=== PATIENT | female | born 1950 | race Two or more races ===

== ENCOUNTER → 2017-12-09 | Outpatient (CLI) | payer MEDICARE, OTHER | END | disposition home or self-care (01) | LOC: HKI 14:31 | DX: M17.12 Unilateral primary osteoarthritis, left knee (principal); Z90.710 Acquired absence of both cervix and uterus | CPT/HCPCS: Z7500 ==

== ENCOUNTER → 2018-04-06 | Outpatient (CLI) | payer MEDICARE, OTHER | END | disposition home or self-care (01) | LOC: HKI 09:59 | DX: Z01.818 Encounter for other preprocedural examination (principal) | CPT/HCPCS: G0463 ==

== ENCOUNTER 2018-04-08 05:39 | Observation (INO) | payer MEDICARE, OTHER ==
[2018-04-08] MEDS: LACTATED RINGER'S 1,000 ML IV* (06:00)
[2018-04-08] MEDS ORDERED: EPHEDrine SULFATE 50 MG/5 ML SYG (07:00)
[2018-04-08] MEDS ORDERED: BACITRACIN 50000 UNITS INJ (07:00)
[2018-04-08] MEDS ORDERED: POLYMYXIN B 500000 UNIT INJ (07:03)
[2018-04-08] MEDS ORDERED: PROPOFOL 20 ML (07:26)
[2018-04-08] MEDS ORDERED: CEFAZOLIN 1 GM INJ (07:26)
[2018-04-08] MEDS ORDERED: ONDANSETRON 4 MG INJ (07:26)
[2018-04-08] MEDS ORDERED: LIDOCAINE 2% (SDV) 5 ML INJ (07:26)
[2018-04-08] MEDS ORDERED: METOCLOPRAMIDE 10 MG INJ (07:26)
[2018-04-08] MEDS ORDERED: SENNA/DOCUSATE NA (8.6MG/50MG) TAB PO (07:30)
[2018-04-08] MEDS ORDERED: DIPHENHYDRAMINE 50 MG INJ IV ×2 (07:30)
[2018-04-08] MEDS ORDERED: METOCLOPRAMIDE 10 MG INJ IV (07:30)
[2018-04-08] MEDS ORDERED: MIDAZOLAM 1 MG/ML 2 ML INJ IV (07:30)
[2018-04-08] MEDS ORDERED: NA PHOSPHATE/BIPHOS 133 ML ENEMA PR (07:30)
[2018-04-08] MEDS ORDERED: HYDROmorphONE 1 MG/5 ML IV SYRINGE IV ×3 (07:30)
[2018-04-08] MEDS ORDERED: LABETALOL HCL 20MG INJ IV (07:30)
[2018-04-08] MEDS ORDERED: oxyCODONE 5 MG TAB PO ×2 (07:30)
[2018-04-08] MEDS ORDERED: OXYCODONE/ACETAMINOPHEN (5/325) TAB PO ×2 (07:30)
[2018-04-08] MEDS ORDERED: FENTAnyl 50 MCG/ML VIAL IV ×3 (07:30)
[2018-04-08] MEDS ORDERED: BETHANECHOL 25 MG TAB PO (07:30)
[2018-04-08] MEDS ORDERED: MEPERIDINE 25 MG INJ IV (07:30)
[2018-04-08] MEDS ORDERED: MAGNESIUM HYDROXIDE 30ML CUP PO (07:30)
[2018-04-08] MEDS ORDERED: NALOXONE (0.4 MG/ML) INJ IV (07:30)
[2018-04-08] MEDS ORDERED: ONDANSETRON 4 MG INJ IV (07:30)
[2018-04-08] MEDS ORDERED: hydrALAzine 20 MG INJ IV (07:30)
[2018-04-08] MEDS ORDERED: BISACODYL 10 MG SUPP PR (07:30)
[2018-04-08] MEDS ORDERED: EPHEDrine SULFATE 50 MG/5 ML SYG IV (07:30)
[2018-04-08] MEDS: TRANEXAMIC ACID 1,000 MG in NS 100 ML PRE-OP X1 IVPB (07:35)
[2018-04-08] MEDS: CEFAZOLIN 1 GM/50 ML (PMX) 50 ML IVPB ×3 (07:47→17:26)
[2018-04-08] MEDS: BACITRACIN 50000 UNITS INJ IRR (07:58)
[2018-04-08] MEDS: TRANEXAMIC ACID 1,000 MG in NS 100 ML INTRA-OP X1 IVPB ×2 (08:15→09:00)
[2018-04-08] MEDS: POLYMYXIN B 500000 UNIT INJ IRR (08:17)
[2018-04-08] MEDS: HIP PAIN COCKTAIL (CEFUROXIME) INJ (08:18)
[2018-04-08] MEDS ORDERED: ROPIVACAINE 0.5 % 30 ML VIAL (08:39)
[2018-04-08] MEDS: GABAPENTIN 100 MG CAP PO ×3 (09:00→20:46)
[2018-04-08] MEDS: DOCUSATE SODIUM 100 MG CAP PO (10:07)
[2018-04-08] MEDS: ONDANSETRON 4 MG INJ IV ×3 (10:07→21:39)
[2018-04-08] MEDS: ASPIRIN 81 MG TAB PO ×3 (10:07→20:45)
[2018-04-08] MEDS: SOD CHLORIDE 0.9% 1,000 ML IV ×2 (11:49→23:59)
[2018-04-08] MEDS: oxyCODONE 5 MG TAB PO ×3 (11:50→20:46)
[2018-04-09] MEDS: oxyCODONE 5 MG TAB PO ×4 (00:06→13:56)
[2018-04-09] MEDS: CEFAZOLIN 1 GM/50 ML (PMX) 50 ML IVPB (01:42)
[2018-04-09] MEDS: ONDANSETRON 4 MG INJ IV (04:00)
[2018-04-09 05:29] LABS: ADD MAN DIFF? NO
[2018-04-09 05:34] LABS: WHITE BLOOD COUNT 10.3 10^3/ul (4.8-10.8)
[2018-04-09 05:34] LABS: BASOPHILS % 0.3 % (0.0-2.0); EOSINOPHILS % 0.2 % (0.0-7.0); HEMATOCRIT 31.6 % (37.0-47.0); HEMOGLOBIN 10.1 g/dl (12.0-16.0); LYMPHOCYTES # 1.2 10^3/ul (0.8-2.9); LYMPHOCYTES % 11.5 % (15.0-51.0); MEAN CORPUSCULAR HEMOGLOBIN 31.1 pg (29.0-33.0); MEAN CORPUSCULAR VOLUME 97.2 fl (82.0-101.0); MEAN PLATELET VOLUME 12.2 fl (7.4-10.4); MONOCYTES % 9.7 % (0.0-11.0); NEUTROPHILS % 77.9 % (39.0-77.0); PLATELET COUNT 163 10^3/UL (140-415); RED BLOOD COUNT 3.25 10^6/ul (4.20-5.40); RED CELL DISTRIBUTION WIDTH 13.2 % (11.5-14.5)
[2018-04-09 05:38] LABS: HEMOGLOBIN A1C 5.6 % (0-5.9)
[2018-04-09 06:02] LABS: ANION GAP 7 (5-13); BLOOD UREA NITROGEN 12 mg/dl (7-20); CARBON DIOXIDE 28 mmol/L (21-31); CHLORIDE 103 mmol/L (97-110); Estimated GFR > 60 mL/min (>60); GLUCOSE 127 mg/dl (70-220); POTASSIUM 4.5 mmol/L (3.5-5.1); SODIUM 138 mmol/L (135-144)
[2018-04-09 06:06] LABS: CHOL/HDL RATIO 3.2 RATIO; HDL CHOLESTEROL 46 mg/dl (35-98); LDL CHOLESTEROL,CALCULATED 94 mg/dl; TRIGLYCERIDES 54 mg/dl (0-149)
[2018-04-09 06:06] LABS: CHOLESTEROL 151 mg/dl (100-200)
[2018-04-09] MEDS: GABAPENTIN 100 MG CAP PO ×2 (08:33→12:25)
[2018-04-09] MEDS: FERROUS FUMARATE (SR) TAB PO (08:33)
[2018-04-09] MEDS: ASPIRIN 81 MG TAB PO (08:33)
[2018-04-09] MEDS: CELECOXIB 200 MG CAP PO (08:34)
[2018-04-09] MEDS: DOCUSATE SODIUM 100 MG CAP PO (08:35)
[2018-04-09] MEDS: PANTOPRAZOLE (EC) 40 MG TAB PO (12:25)
[2018-04-09 14:16] LABS: FREE T3 3.79 pg/ml (2.77-5.27); FREE T4 (FREE THYROXINE) 1.81 ng/dl (0.78-2.44)
[2018-04-10] MEDS ORDERED: PANTOPRAZOLE (EC) 40 MG TAB PO (09:00)
== END 2018-04-09 15:40 | disposition home health service (06) ==
LOC: REC 05:39 → MS1 10:40
PROVIDERS: Orthopaedic Surgery Adult Reconstructive Orthopaedic Surgery
DX: M17.12 Unilateral primary osteoarthritis, left knee (principal); D64.9 Anemia, unspecified
CPT/HCPCS: 27447; 73560; 80048; 80061; 83036; 84439; 84443; 84481; 85025; 86850; 86900; 86901; 88304; 88311; 97110; 97116; 97161; 97166; 97530; 97535; 99217

== ENCOUNTER 2018-04-14 18:25 | Emergency (ER) | payer MEDICARE, OTHER ==
[2018-04-14 20:32] LABS: URINE BLOOD (Dip) POC Trace-lysed (NEGATIVE); URINE GLUCOSE (Dip) POC Negative (NEGATIVE); URINE KETONES (Dip) POC Negative (NEGATIVE); URINE LEUKOCYTE EST (Dip) POC 1+ (NEGATIVE); URINE NITRITE (Dip) POC Negative (NEGATIVE); URINE TOTAL PROTEIN POC Negative (NEGATIVE)
[2018-04-14 20:32] LABS: URINE PH (Dip) POC 7.5 (5.0-8.5)
[2018-04-14] MEDS: ONDANSETRON (ODT) 4 MG TAB ODT (20:34)
[2018-04-14] MEDS: HYDROCODONE/APAP (10/325) TAB PO (20:34)
[2018-04-14 20:57] LABS: ADD UMIC YES; UR ASCORBIC ACID NEGATIVE (NEGATIVE); UR BACTERIA FEW /HPF (NONE SEEN); UR BILIRUBIN (Dip) NEGATIVE (NEGATIVE); UR BLOOD (Dip) 1+ mg/dL (NEGATIVE); UR CLARITY CLEAR (CLEAR); UR COLOR STRAW (YELLOW); UR GLUCOSE (Dip) NEGATIVE (NEGATIVE); UR KETONES (Dip) NEGATIVE (NEGATIVE); UR LEUKOCYTE ESTERASE (Dip) 1+ Leu/ul (NEGATIVE); UR NITRITE (Dip) NEGATIVE (NEGATIVE); UR NONSQUAMOUS EPITHELIAL CELL 1 /HPF (NONE SEEN); UR RBC 1 /HPF (0-5); UR SPECIFIC GRAVITY (Dip) 1.008 (1.003-1.030); UR SQUAMOUS EPITHELIAL CELL FEW /HPF (FEW); UR TOTAL PROTEIN (Dip) NEGATIVE (NEGATIVE); UR UROBILINOGEN (Dip) NEGATIVE (NEGATIVE); UR WBC 18 /HPF (0-5)
[2018-04-14] MEDS: NITROFURANTOIN (SR) 100 MG CAP PO (21:04)
== END 2018-04-14 21:16 | disposition home or self-care (01) ==
LOC: E/R 18:25
DX: S80.02XA Contusion of left knee, initial encounter (principal); N30.90 Cystitis, unspecified without hematuria; X58.XXXA Exposure to other specified factors, initial encounter; Y92.9 Unspecified place or not applicable; Z96.652 Presence of left artificial knee joint; Z87.891 Personal history of nicotine dependence; Z79.82 Long term (current) use of aspirin
CPT/HCPCS: 81001; 81003; 93971; 99284-25

== ENCOUNTER → 2018-04-20 | Outpatient (CLI) | payer MEDICARE, OTHER | END | disposition home or self-care (01) | LOC: HKI 10:36 | DX: Z09 Encounter for follow-up examination after completed treatment for conditions other than malignant neoplasm (principal); R22.42 Localized swelling, mass and lump, left lower limb; Z96.652 Presence of left artificial knee joint | CPT/HCPCS: 73562; 73562-LT ==